=== PATIENT | female | born 1975 | race Caucasian/White ===

== ENCOUNTER 2017-05-12 21:24 | Emergency (ER) | payer OTHER ==
[~2017-05-12] VITALS: Ht 167.6 cm; Wt 119.8 kg
[2017-05-12 21:31] VITALS: BP 172/100
== END 2017-05-12 23:44 | disposition left against medical advice (07) ==
LOC: ED 23:17
DX: Z53.21 Procedure and treatment not carried out due to patient leaving prior to being seen by health care provider (principal)

== ENCOUNTER 2020-01-31 07:32 | Inpatient (IN) | payer MEDICAID, OTHER ==
[~2020-01-31] VITALS: Ht 167.6 cm; Wt 97.0 kg
[~2020-01-31 07:32] MED LIST: BLOOD PRESSURE MED PO
[2020-01-31] MEDS ORDERED: OXYC5TAB2 PO (07:56)
[2020-01-31] MEDS ORDERED: DICL-249 PEG (07:56)
[2020-01-31] MEDS ORDERED: PREG200C PO (07:56)
[2020-01-31] MEDS ORDERED: BUPR1FIL TD (07:56)
[2020-01-31] MEDS ORDERED: TIZA4CAP PO (07:56)
[2020-01-31] MEDS ORDERED: METH250T3 PO (07:56)
[2020-01-31] MEDS ORDERED: [UNRECOGNIZED DRUG - CODE] PO (07:56)
[2020-01-31] MEDS ORDERED: FENTANYL PF 100 MCG/2ML ONE (07:58)
[2020-01-31] MEDS ORDERED: FENTANYL PF 100 MCG/2ML IVPush ONE (08:00)
[2020-01-31] MEDS ORDERED: SODIUM CHLORIDE 0.9% 1,000ML IVBOLUS ONE (08:00)
--- NOTE | 2020-01-31 08:15 | NUR ---
PT BIB EMS FROM [facility]. PT HAS NECROTIC RIGHT TOE, HALF DOLLAR SIZE. PT HAS CHRONIC POOR VSACULAR INSUFFICIENCY. LOWER BILAT LEGS DUSKY IN COLOR. PEDAL PULSES ABSENT W DOPPLAR BY . DENIES CP, SOB OR COUGH
--- NOTE | 2020-01-31 09:44 | NUR ---
REPORT TO [facility]
[2020-01-31 11:24] VITALS: BP 116/73
[2020-01-31] MEDS: BUPRENORPHINE/NALOXONE 2-0.5MG SL SCH (11:33)
[2020-01-31] MEDS: TIZANIDINE 4MG TABLET PO SCH ×2 (11:33→22:03)
[2020-01-31] MEDS: PREGABALIN 200 MG CAPSULE PO SCH ×3 (11:33→22:04)
[2020-01-31 11:39] VITALS: BP 116/73
[2020-01-31] MEDS: ENOXAPARIN 40 MG/0.4 ML SQ SCH ×2 (12:00→14:26)
[2020-01-31] MEDS ORDERED: ONDANSETRON 2MG/ML, 2ML IVPush PRN (12:00)
[2020-01-31] MEDS ORDERED: TRAZODONE 50MG TABLET PO PRN (12:00)
[2020-01-31] MEDS ORDERED: MELATONIN 5 MG TABLET PO PRN (12:00)
[2020-01-31] MEDS ORDERED: ONDANSETRON ODT 4 MG PO PRN (12:00)
[2020-01-31 13:12] VITALS: BP 93/57
[2020-01-31] MEDS: POLYETHYLENE GLYCOL 17 GM PACKET PO SCH (14:25)
[2020-01-31] MEDS: SENNA/DOCUSATE TABLET PO SCH (14:26)
[2020-01-31] MEDS: DAPTOMYCIN 600 MG in SODIUM CHLORIDE 0.9% 100 ML IV SCH (16:03)
[2020-01-31 19:41] VITALS: BP 109/72
[2020-01-31] MEDS: METHYLDOPA 250 MG TABLET PO SCH ×2 (22:04→22:05)
[2020-01-31] MEDS: OXYcodone IR 5MG TABLET PO SCH (22:04)
[2020-02-01 00:45] VITALS: BP 115/70
[2020-02-01] MEDS: ACETAMINOPHEN 325 MG TABLET PO PRN (02:03)
[2020-02-01 05:41] LABS: ALANINE AMINOTRANSFERASE 48 U/L (12-78); ALBUMIN 2.4 g/dL (3.4-5.0); ANION GAP 7 mmol/L (5-15); CALCIUM 8.4 mg/dL (8.5-10.1); CHLORIDE 118 mmol/L (98-107)
[2020-02-01 05:44] LABS: ALKALINE PHOSPHATASE 164 U/L (45-117); BILIRUBIN,TOTAL 0.4 mg/dL (0.2-1.0); CHOL/HDL RATIO 5.5; CHOLESTEROL, TOTAL 132 mg/dL (140-239); CREATININE 0.64 mg/dL (0.55-1.02); HDL CHOL % 18 % (28-40); HDL CHOLESTEROL (DIRECT) 24 mg/dL (40-60); LDL CHOLESTEROL,CALCULATED 70 mg/dL (54-169); LDL/HDL RATIO 2.9 (0.5-3.0); TOTAL PROTEIN 6.1 g/dL (6.4-8.2); TRIGLYCERIDES 191 mg/dL (50-200); VLDL CHOLESTEROL 38 mg/dL (0-25)
[2020-02-01 06:33] LABS: MEAN CORPUSCULAR HEMOGLOBIN 28.4 pg (27.0-34.8); MEAN CORPUSCULAR HGB CONC 32.6 g/dL (32.4-35.8); MEAN PLATELET VOLUME 10.7 fL (7.4-10.4); PLATELET COUNT 84 x10^3/uL (130-400); RED BLOOD COUNT 4.91 x10^6/uL (3.82-5.3); RED CELL DISTRIBUTION WIDTH 14.2 % (9.6-15.2)
[2020-02-01 06:35] LABS: MD SCAN
[2020-02-01 06:36] LABS: BASOPHILS # (AUTO) 0.06 x10^3/uL (0-0.1); BASOPHILS % (AUTO) 0 % (0-1); EOSINOPHILS # (AUTO) 0.25 x10^3/uL (0-0.4); EOSINOPHILS % (AUTO) 2 % (1-7); LYMPHOCYTES # (AUTO) 2.81 x10^3/uL (1-3.4); LYMPHOCYTES % (AUTO) 17 % (22-44); MONOCYTES # (AUTO) 1.14 x10^3/uL (0.2-0.8); MONOCYTES % (AUTO) 7 % (2-9); NEUTROPHILS # (AUTO) 12.84 x10^3/uL (1.8-6.8); NEUTROPHILS % (AUTO) 75 % (42-75)
[2020-02-01] MEDS: POLYETHYLENE GLYCOL 17 GM PACKET PO SCH (07:16)
[2020-02-01] MEDS: NICOTINE 21 MG/24 HR PATCH.TD24 TD SCH (07:39)
[2020-02-01] MEDS: SENNA/DOCUSATE TABLET PO SCH (07:40)
[2020-02-01] MEDS: BUPRENORPHINE/NALOXONE 2-0.5MG SL SCH (07:40)
[2020-02-01] MEDS: METHYLDOPA 250 MG TABLET PO SCH ×3 (07:40→21:00)
[2020-02-01] MEDS: OXYcodone IR 5MG TABLET PO SCH (07:40)
[2020-02-01] MEDS: TIZANIDINE 4MG TABLET PO SCH ×2 (07:40→20:34)
[2020-02-01] MEDS: PREGABALIN 200 MG CAPSULE PO SCH ×3 (07:40→20:34)
[2020-02-01 08:48] VITALS: BP 119/74
[2020-02-01] MEDS: POTASSIUM CHLORIDE 20 MEQ in LACTATED RINGERS 1,000 ML IV SCH (08:54)
[2020-02-01] MEDS: ENOXAPARIN 40 MG/0.4 ML SQ SCH (11:23)
[2020-02-01 13:17] VITALS: BP 102/69
[2020-02-01] MEDS: DAPTOMYCIN 600 MG in SODIUM CHLORIDE 0.9% 100 ML IV SCH (16:15)
[2020-02-01 19:43] VITALS: BP 129/81
[2020-02-01] MEDS: OXYcodone IR 5MG TABLET PO PRN (20:36)
[2020-02-02 01:23] VITALS: BP 132/78
[2020-02-02] MEDS: OXYcodone IR 5MG TABLET PO PRN ×3 (03:30→23:06)
[2020-02-02] MEDS: POTASSIUM CHLORIDE 20 MEQ in LACTATED RINGERS 1,000 ML IV SCH ×2 (03:31→15:26)
[2020-02-02 05:42] LABS: CALCIUM 8.6 mg/dL (8.5-10.1); CHLORIDE 119 mmol/L (98-107)
[2020-02-02 05:46] LABS: ANION GAP 7 mmol/L (5-15); CREATININE 0.67 mg/dL (0.55-1.02)
[2020-02-02 06:13] LABS: MEAN CORPUSCULAR HEMOGLOBIN 28.4 pg (27.0-34.8); MEAN CORPUSCULAR HGB CONC 32.8 g/dL (32.4-35.8); PLATELET COUNT 95 x10^3/uL (130-400); RED BLOOD COUNT 4.87 x10^6/uL (3.82-5.3); RED CELL DISTRIBUTION WIDTH 13.9 % (9.6-15.2)
[2020-02-02 06:15] LABS: BASOPHILS # (AUTO) 0.06 x10^3/uL (0-0.1); BASOPHILS % (AUTO) 1 % (0-1); EOSINOPHILS # (AUTO) 0.17 x10^3/uL (0-0.4); EOSINOPHILS % (AUTO) 1 % (1-7); LYMPHOCYTES # (AUTO) 2.23 x10^3/uL (1-3.4); LYMPHOCYTES % (AUTO) 17 % (22-44); MD SCAN; MONOCYTES # (AUTO) 1.07 x10^3/uL (0.2-0.8); MONOCYTES % (AUTO) 8 % (2-9); NEUTROPHILS # (AUTO) 9.57 x10^3/uL (1.8-6.8); NEUTROPHILS % (AUTO) 73 % (42-75)
[2020-02-02 07:00] VITALS: BP 128/70
[2020-02-02] MEDS: TIZANIDINE 4MG TABLET PO SCH ×2 (09:00→21:01)
[2020-02-02] MEDS: POLYETHYLENE GLYCOL 17 GM PACKET PO SCH (09:00)
[2020-02-02] MEDS: SENNA/DOCUSATE TABLET PO SCH (09:00)
[2020-02-02] MEDS: METHYLDOPA 250 MG TABLET PO SCH ×2 (09:05→20:44)
[2020-02-02] MEDS: PREGABALIN 200 MG CAPSULE PO SCH ×3 (09:05→21:01)
[2020-02-02] MEDS: BUPRENORPHINE/NALOXONE 2-0.5MG SL SCH (09:05)
[2020-02-02] MEDS: NICOTINE 21 MG/24 HR PATCH.TD24 TD SCH (09:07)
[2020-02-02] MEDS: ENOXAPARIN 40 MG/0.4 ML SQ SCH (12:00)
[2020-02-02] MEDS ORDERED: NALOXONE 1 MG/ML, 2ML ONE (12:35)
[2020-02-02] MEDS ORDERED: FLUMAZENIL 0.1 MG/1 ML, 5ML ONE (12:35)
[2020-02-02] MEDS ORDERED: MIDAZOLAM 1 MG/ML, 5ML ONE (12:35)
[2020-02-02] MEDS ORDERED: LIDOCAINE 1%, 10ML ONE (12:35)
[2020-02-02] MEDS ORDERED: FENTANYL PF 100 MCG/2ML ONE (12:35)
[2020-02-02] MEDS ORDERED: PROTAMINE SULFATE 10 MG/ML, 25ML ONE (12:36)
[2020-02-02] MEDS ORDERED: HEPARIN 1,000 UNITS/ML, 10ML ONE (12:36)
[2020-02-02 14:17] VITALS: BP 114/69
[2020-02-02] MEDS: DAPTOMYCIN 600 MG in SODIUM CHLORIDE 0.9% 100 ML IV SCH (15:26)
[2020-02-02 20:04] VITALS: BP 110/68
[2020-02-03 01:42] VITALS: BP 101/62
[2020-02-03] MEDS: OXYcodone IR 5MG TABLET PO PRN ×3 (05:27→22:16)
[2020-02-03 06:22] LABS: CHLORIDE 116 mmol/L (98-107)
[2020-02-03 06:40] LABS: ALANINE AMINOTRANSFERASE 38 U/L (12-78); ALBUMIN 2.1 g/dL (3.4-5.0); ALKALINE PHOSPHATASE 151 U/L (45-117); ANION GAP 7 mmol/L (5-15); BILIRUBIN,TOTAL 0.2 mg/dL (0.2-1.0); CALCIUM 8.7 mg/dL (8.5-10.1); CREATINE KINASE, TOTAL 117 U/L (26-192); CREATININE 0.61 mg/dL (0.55-1.02); TOTAL PROTEIN 5.9 g/dL (6.4-8.2)
[2020-02-03 06:42] LABS: BASOPHILS # (AUTO) 0.05 x10^3/uL (0-0.1); BASOPHILS % (AUTO) 0 % (0-1); EOSINOPHILS # (AUTO) 0.15 x10^3/uL (0-0.4); EOSINOPHILS % (AUTO) 1 % (1-7); LYMPHOCYTES # (AUTO) 2.18 x10^3/uL (1-3.4); LYMPHOCYTES % (AUTO) 16 % (22-44); MD SCAN; MEAN CORPUSCULAR HEMOGLOBIN 28.8 pg (27.0-34.8); MEAN CORPUSCULAR HGB CONC 33.2 g/dL (32.4-35.8); MEAN PLATELET VOLUME 10.6 fL (7.4-10.4); MONOCYTES # (AUTO) 1.06 x10^3/uL (0.2-0.8); MONOCYTES % (AUTO) 8 % (2-9); NEUTROPHILS # (AUTO) 9.84 x10^3/uL (1.8-6.8); NEUTROPHILS % (AUTO) 74 % (42-75); PLATELET COUNT 82 x10^3/uL (130-400); RED BLOOD COUNT 4.22 x10^6/uL (3.82-5.3); RED CELL DISTRIBUTION WIDTH 14.2 % (9.6-15.2)
[2020-02-03 06:45] LABS: HCT (SEDRATE) 36.6 % (34.6-47.8)
[2020-02-03 07:13] VITALS: BP 131/78
[2020-02-03] MEDS: POLYETHYLENE GLYCOL 17 GM PACKET PO SCH (09:00)
[2020-02-03] MEDS: SENNA/DOCUSATE TABLET PO SCH (09:00)
[2020-02-03] MEDS: TIZANIDINE 4MG TABLET PO SCH ×2 (09:39→22:11)
[2020-02-03] MEDS: METHYLDOPA 250 MG TABLET PO SCH ×2 (09:39→21:00)
[2020-02-03] MEDS: PREGABALIN 200 MG CAPSULE PO SCH ×3 (09:39→22:11)
[2020-02-03] MEDS: NICOTINE 21 MG/24 HR PATCH.TD24 TD SCH (09:40)
[2020-02-03] MEDS: BUPRENORPHINE/NALOXONE 2-0.5MG SL SCH (10:03)
[2020-02-03 13:10] VITALS: BP 120/72
[2020-02-03] MEDS: ENOXAPARIN 40 MG/0.4 ML SQ SCH (14:05)
[2020-02-03] MEDS: DAPTOMYCIN 600 MG in SODIUM CHLORIDE 0.9% 100 ML IV SCH (17:33)
[2020-02-03 18:52] VITALS: BP 122/77
[2020-02-04 00:17] VITALS: BP 119/73
[2020-02-04 05:57] LABS: CHLORIDE 115 mmol/L (98-107)
[2020-02-04 06:25] LABS: ALANINE AMINOTRANSFERASE 40 U/L (12-78); ALBUMIN 2.1 g/dL (3.4-5.0); ALKALINE PHOSPHATASE 128 U/L (45-117); ANION GAP 9 mmol/L (5-15); BILIRUBIN,TOTAL 0.2 mg/dL (0.2-1.0); CALCIUM 8.8 mg/dL (8.5-10.1); CREATININE 0.77 mg/dL (0.55-1.02); TOTAL PROTEIN 5.9 g/dL (6.4-8.2)
[2020-02-04 06:32] LABS: BASOPHILS # (AUTO) 0.06 x10^3/uL (0-0.1); BASOPHILS % (AUTO) 1 % (0-1); EOSINOPHILS # (AUTO) 0.21 x10^3/uL (0-0.4); EOSINOPHILS % (AUTO) 2 % (1-7); LYMPHOCYTES # (AUTO) 2.18 x10^3/uL (1-3.4); LYMPHOCYTES % (AUTO) 20 % (22-44); MD SCAN; MEAN CORPUSCULAR HEMOGLOBIN 28.6 pg (27.0-34.8); MEAN CORPUSCULAR HGB CONC 32.7 g/dL (32.4-35.8); MEAN PLATELET VOLUME 10.5 fL (7.4-10.4); MONOCYTES # (AUTO) 0.95 x10^3/uL (0.2-0.8); MONOCYTES % (AUTO) 9 % (2-9); NEUTROPHILS % (AUTO) 69 % (42-75); PLATELET COUNT 89 x10^3/uL (130-400); RED BLOOD COUNT 4.15 x10^6/uL (3.82-5.3); RED CELL DISTRIBUTION WIDTH 14.1 % (9.6-15.2)
[2020-02-04 08:55] VITALS: BP 130/76
[2020-02-04] MEDS: NICOTINE 21 MG/24 HR PATCH.TD24 TD SCH (08:55)
[2020-02-04] MEDS: BUPRENORPHINE/NALOXONE 2-0.5MG SL SCH (08:55)
[2020-02-04] MEDS: METHYLDOPA 250 MG TABLET PO SCH ×2 (08:55→21:00)
[2020-02-04] MEDS: PREGABALIN 200 MG CAPSULE PO SCH ×3 (08:55→21:08)
[2020-02-04] MEDS: TIZANIDINE 4MG TABLET PO SCH ×2 (08:55→21:08)
[2020-02-04] MEDS: SENNA/DOCUSATE TABLET PO SCH (08:56)
[2020-02-04] MEDS: POLYETHYLENE GLYCOL 17 GM PACKET PO SCH (08:56)
[2020-02-04] MEDS: OXYcodone IR 5MG TABLET PO PRN ×3 (09:10→21:08)
[2020-02-04 12:33] VITALS: BP 119/62
[2020-02-04] MEDS: ENOXAPARIN 40 MG/0.4 ML SQ SCH (14:36)
[2020-02-04] MEDS: DAPTOMYCIN 600 MG in SODIUM CHLORIDE 0.9% 100 ML IV SCH (18:47)
[2020-02-04 20:25] VITALS: BP 134/78
[2020-02-05 04:30] VITALS: BP 106/70
[2020-02-05] MEDS: OXYcodone IR 5MG TABLET PO PRN ×3 (05:07→20:43)
[2020-02-05 07:09] VITALS: BP 128/64
[2020-02-05] MEDS: D5%-0.45NACL+KCL 20MEQ 1,000 ML IV SCH (09:19)
[2020-02-05] MEDS: POLYETHYLENE GLYCOL 17 GM PACKET PO SCH (09:19)
[2020-02-05] MEDS: PREGABALIN 200 MG CAPSULE PO SCH ×3 (09:19→20:00)
[2020-02-05] MEDS: TIZANIDINE 4MG TABLET PO SCH ×2 (09:19→19:59)
[2020-02-05] MEDS: SENNA/DOCUSATE TABLET PO SCH (09:19)
[2020-02-05] MEDS: METHYLDOPA 250 MG TABLET PO SCH ×2 (09:19→20:00)
[2020-02-05] MEDS: NICOTINE 21 MG/24 HR PATCH.TD24 TD SCH (09:20)
[2020-02-05] MEDS: BUPRENORPHINE/NALOXONE 2-0.5MG SL SCH (09:20)
[2020-02-05 09:49] VITALS: BP 134/76
[2020-02-05 12:49] VITALS: BP 134/76
[2020-02-05] MEDS ORDERED: CHLORHEXIDINE 15 ML UDC ONE (13:05)
[2020-02-05] MEDS ORDERED: CHLORHEXIDINE 15 ML UDC MM ONE (13:30)
[2020-02-05] MEDS ORDERED: PROPOFOL 50 ML ONE (13:36)
[2020-02-05] MEDS ORDERED: MIDAZOLAM 1 MG/ML, 2ML ONE (13:36)
[2020-02-05] MEDS ORDERED: FENTANYL PF 250 MCG/5ML ONE (13:37)
[2020-02-05] MEDS ORDERED: HEPARIN 1,000 UNITS/ML, 10ML ONE ×2 (13:46→15:24)
[2020-02-05] MEDS ORDERED: BUPIVACAINE/PF 0.5% ONE (13:46)
[2020-02-05] MEDS ORDERED: THROMBIN 5,000 UNIT VIAL TP ONE (13:46)
[2020-02-05] MEDS ORDERED: PROTAMINE SULFATE 10 MG/ML, 5ML ONE (13:46)
[2020-02-05] MEDS ORDERED: BUPIVACAINE/EPI 0.5% 1:200K ONE (13:47)
[2020-02-05] MEDS ORDERED: BACITRACIN 50,000 UNIT ONE (13:47)
[2020-02-05] MEDS ORDERED: MEPERIDINE/PF 25MG/0.5ML IVPush PRN (14:00)
[2020-02-05] MEDS ORDERED: FENTANYL PF 100 MCG/2ML IV PRN (14:00)
[2020-02-05] MEDS ORDERED: PROMETHAZINE 25 MG/ML, 1ML IVPush PRN (14:00)
[2020-02-05] MEDS ORDERED: ONDANSETRON 2MG/ML, 2ML IVPush PRN (14:00)
[2020-02-05] MEDS ORDERED: LABETALOL 5MG/ML, 20ML IV PRN (14:00)
[2020-02-05] MEDS ORDERED: EPHEDRINE 50 MG/ML, 1ML IVPush PRN (14:00)
[2020-02-05] MEDS ORDERED: OXYcodone 5 MG/5 ML ORAL.SOL UDC PO PRN (14:00)
[2020-02-05] MEDS ORDERED: DIPHENHYDRAMINE 50 MG/ML, 1ML IVPush PRN (14:00)
[2020-02-05] MEDS ORDERED: HYDROmorphone 1 MG/ML, 1ML INJ IVPush PRN (14:00)
[2020-02-05] MEDS ORDERED: DIAZEPAM 5 MG/ML, 2ML IVPush PRN (14:00)
[2020-02-05] MEDS ORDERED: EPHEDRINE 50 MG/ML, 1ML IM PRN (14:00)
[2020-02-05] MEDS ORDERED: ROCURONIUM 10 MG/ML,10ML ONE (14:10)
[2020-02-05] MEDS: HEPARIN 25,000 UNITS/250ML PMX 250 ML IV PRN (14:30)
[2020-02-05] MEDS ORDERED: HYDROmorphone 2 MG/ML, 1ML ONE (14:42)
[2020-02-05] MEDS ORDERED: VISIPAQUE 270 MG/ML, 50ML BOTTLE ONE (15:20)
[2020-02-05] MEDS ORDERED: HEPARIN 5,000 UNITS/ML, 1ML IV ONE (15:30)
[2020-02-05] MEDS ORDERED: PROPOFOL 10 MG/ML, 20ML ONE (15:41)
[2020-02-05] MEDS ORDERED: ONDANSETRON 2MG/ML, 2ML ONE (15:42)
[2020-02-05] MEDS ORDERED: SUCCINYLCHOLINE 20 MG/ML, 10ML ONE (15:42)
[2020-02-05] MEDS ORDERED: FENTANYL PF 100 MCG/2ML ONE (16:10)
[2020-02-05] MEDS ORDERED: HYDROmorphone 1 MG/ML, 1ML INJ ONE (16:10)
[2020-02-05] MEDS ORDERED: OXYcodone 5 MG/5 ML ORAL.SOL UDC ONE (16:11)
[2020-02-05] MEDS ORDERED: MEPERIDINE/PF 25MG/ML,1ML ONE (16:17)
[2020-02-05 17:15] VITALS: BP 148/80
[2020-02-05 19:54] VITALS: BP 124/74
[2020-02-05] MEDS: DAPTOMYCIN 600 MG in SODIUM CHLORIDE 0.9% 100 ML IV SCH (19:59)
[2020-02-05] MEDS: HEPARIN 5,000 UNITS/ML, 1ML IV PRN (21:19)
[2020-02-05] MEDS: CEFAZOLIN PMX 1GM/50ML 50 ML IVPB SCH (21:30)
[2020-02-06 00:18] VITALS: BP 118/72
[2020-02-06] MEDS: OXYcodone IR 5MG TABLET PO PRN ×4 (02:02→18:53)
[2020-02-06 03:37] LABS: ANION GAP 5 mmol/L (5-15); CHLORIDE 114 mmol/L (98-107); CREATININE 0.76 mg/dL (0.55-1.02)
[2020-02-06 04:00] LABS: MD YES; MEAN CORPUSCULAR HEMOGLOBIN 29.1 pg (27.0-34.8); MEAN CORPUSCULAR HGB CONC 33.7 g/dL (32.4-35.8); MEAN PLATELET VOLUME 11.7 fL (7.4-10.4); PLATELET COUNT 147 x10^3/uL (130-400); RED BLOOD COUNT 4.08 x10^6/uL (3.82-5.3)
[2020-02-06 04:04] LABS: <PLATELET ESTIMATE> ADEQUATE; <RBC MORPHOLOGY> NORMAL; BAND#(MANUAL) 0.14 x10^3/uL; BANDS%(MANUAL) 1 % (0-7); BASOS#(MANUAL) 0.14 x10^3/uL (0-0.1); BASOS% (MANUAL) 1 % (0-1); EOS#(MANUAL) 0.55 x10^3/uL (0.0-0.4); EOS% (MANUAL) 4 % (1-7); LARGE PLATELETS 1+; LYMPH#(MANUAL) 0.69 x10^3/uL (1-3.4); LYMPHS% (MANUAL) 5 % (22-44); MONOS#(MANUAL) 0.14 x10^3/uL (0.3-2.7); MONOS% (MANUAL) 1 % (2-9); SEG#(MANUAL) 12.06 x10^3/uL (1.8-6.8); SEGS% (MANUAL) 88 % (42-75)
[2020-02-06] MEDS: HEPARIN 5,000 UNITS/ML, 1ML IV PRN ×3 (04:05→19:55)
[2020-02-06] MEDS: morphine SULFATE 10 MG/ML, 1ML IV PRN ×4 (04:15→07:34)
[2020-02-06] MEDS: D5%-0.45NACL+KCL 20MEQ 1,000 ML IV SCH ×2 (04:15→17:48)
[2020-02-06 04:18] VITALS: BP 144/78
[2020-02-06] MEDS: CEFAZOLIN PMX 1GM/50ML 50 ML IVPB SCH (05:09)
[2020-02-06 07:16] VITALS: BP 115/79
[2020-02-06] MEDS ORDERED: MAGNESIUM SULFATE PMX 2GM/50ML 50 ML IV ONE (08:00)
[2020-02-06] MEDS: METHYLDOPA 250 MG TABLET PO SCH ×2 (08:27→20:10)
[2020-02-06] MEDS: MULTIVITS,STRESS FORMULA 1 TABLET PO SCH (08:27)
[2020-02-06] MEDS: TIZANIDINE 4MG TABLET PO SCH ×2 (08:28→20:11)
[2020-02-06] MEDS: ZINC SULFATE 220 MG CAPSULE PO SCH (08:28)
[2020-02-06] MEDS: CHOLECALCIFEROL 5,000u TAB PO SCH (08:28)
[2020-02-06] MEDS: POLYETHYLENE GLYCOL 17 GM PACKET PO SCH (08:30)
[2020-02-06] MEDS: SENNA/DOCUSATE TABLET PO SCH (08:30)
[2020-02-06] MEDS: NICOTINE 21 MG/24 HR PATCH.TD24 TD SCH (08:31)
[2020-02-06] MEDS: PREGABALIN 200 MG CAPSULE PO SCH ×3 (08:44→20:11)
[2020-02-06] MEDS: ASCORBIC ACID 500 MG TABLET PO SCH ×2 (08:45→17:51)
[2020-02-06] MEDS: GABAPENTIN 300 MG CAPSULE PO SCH ×3 (10:20→20:10)
[2020-02-06] MEDS: BUPRENORPHINE/NALOXONE 2-0.5MG SL SCH (10:20)
[2020-02-06] MEDS: HEPARIN 25,000 UNITS/250ML PMX 250 ML IV PRN (13:23)
[2020-02-06 13:27] VITALS: BP 116/60
[2020-02-06] MEDS: INSULIN LISPRO 100 UNITS/ML, PEN SQ-INSULIN SCH ×2 (16:00→20:11)
[2020-02-06] MEDS: DAPTOMYCIN 600 MG in SODIUM CHLORIDE 0.9% 100 ML IV SCH (18:53)
[2020-02-06 19:36] VITALS: BP 119/63
[2020-02-07 02:00] VITALS: BP 111/66
[2020-02-07] MEDS: HEPARIN 5,000 UNITS/ML, 1ML IV PRN ×3 (03:04→18:46)
[2020-02-07] MEDS: D5%-0.45NACL+KCL 20MEQ 1,000 ML IV SCH ×2 (04:15→15:22)
[2020-02-07 05:42] LABS: ALBUMIN 1.8 g/dL (3.4-5.0); CHLORIDE 115 mmol/L (98-107)
[2020-02-07 05:43] LABS: BASOPHILS # (AUTO) 0.04 x10^3/uL (0-0.1); BASOPHILS % (AUTO) 0 % (0-1); EOSINOPHILS # (AUTO) 0.22 x10^3/uL (0-0.4); EOSINOPHILS % (AUTO) 2 % (1-7); LYMPHOCYTES # (AUTO) 1.76 x10^3/uL (1-3.4); LYMPHOCYTES % (AUTO) 13 % (22-44); MD NO; MEAN CORPUSCULAR HEMOGLOBIN 28.2 pg (27.0-34.8); MEAN CORPUSCULAR HGB CONC 32.2 g/dL (32.4-35.8); MEAN PLATELET VOLUME 11.4 fL (7.4-10.4); MONOCYTES # (AUTO) 0.72 x10^3/uL (0.2-0.8); MONOCYTES % (AUTO) 6 % (2-9); NEUTROPHILS # (AUTO) 10.38 x10^3/uL (1.8-6.8); NEUTROPHILS % (AUTO) 79 % (42-75); PLATELET COUNT 155 x10^3/uL (130-400); RED BLOOD COUNT 4.03 x10^6/uL (3.82-5.3); RED CELL DISTRIBUTION WIDTH 13.9 % (9.6-15.2)
[2020-02-07 05:46] LABS: ANION GAP 8 mmol/L (5-15); CREATININE 0.63 mg/dL (0.55-1.02)
[2020-02-07] MEDS: INSULIN LISPRO 100 UNITS/ML, PEN SQ-INSULIN SCH ×4 (07:00→20:41)
[2020-02-07 07:15] VITALS: BP 119/76
[2020-02-07] MEDS: OXYcodone IR 5MG TABLET PO PRN ×4 (07:37→22:28)
[2020-02-07] MEDS: ASCORBIC ACID 500 MG TABLET PO SCH ×2 (07:37→16:01)
[2020-02-07] MEDS: CHOLECALCIFEROL 5,000u TAB PO SCH (08:55)
[2020-02-07] MEDS: morphine SULFATE 10 MG/ML, 1ML IV PRN (08:55)
[2020-02-07] MEDS: PREGABALIN 200 MG CAPSULE PO SCH ×3 (08:55→20:40)
[2020-02-07] MEDS: TIZANIDINE 4MG TABLET PO SCH ×2 (08:55→20:40)
[2020-02-07] MEDS: METHYLDOPA 250 MG TABLET PO SCH ×3 (08:55→20:43)
[2020-02-07] MEDS: MULTIVITS,STRESS FORMULA 1 TABLET PO SCH (08:55)
[2020-02-07] MEDS: ZINC SULFATE 220 MG CAPSULE PO SCH (08:56)
[2020-02-07] MEDS: GABAPENTIN 300 MG CAPSULE PO SCH ×3 (08:56→20:40)
[2020-02-07] MEDS: POLYETHYLENE GLYCOL 17 GM PACKET PO SCH (08:57)
[2020-02-07] MEDS: SENNA/DOCUSATE TABLET PO SCH (08:58)
[2020-02-07] MEDS: NICOTINE 21 MG/24 HR PATCH.TD24 TD SCH (08:59)
[2020-02-07] MEDS: HEPARIN 25,000 UNITS/250ML PMX 250 ML IV PRN (11:51)
[2020-02-07] MEDS: BUPRENORPHINE/NALOXONE 2-0.5MG SL SCH (11:55)
[2020-02-07 13:14] VITALS: BP 129/79
[2020-02-07] MEDS ORDERED: MAGNESIUM SULFATE PMX 2GM/50ML 50 ML IV ONE (15:30)
[2020-02-07] MEDS: metFORMIN XR 500 MG TAB.ER.24H PO SCH (16:01)
[2020-02-07] MEDS: DAPTOMYCIN 600 MG in SODIUM CHLORIDE 0.9% 100 ML IV SCH (18:18)
[2020-02-07 19:54] VITALS: BP 101/64
[2020-02-07] MEDS: INSULIN GLARGINE 100 UNITS/ML, PEN SQ-INSULIN SCH (20:41)
[2020-02-08 00:59] VITALS: BP 113/69
[2020-02-08] MEDS: D5%-0.45NACL+KCL 20MEQ 1,000 ML IV SCH ×2 (03:13→22:00)
[2020-02-08 05:07] LABS: BASOPHILS # (AUTO) 0.04 x10^3/uL (0-0.1); BASOPHILS % (AUTO) 0 % (0-1); EOSINOPHILS # (AUTO) 0.27 x10^3/uL (0-0.4); EOSINOPHILS % (AUTO) 2 % (1-7); LYMPHOCYTES # (AUTO) 1.77 x10^3/uL (1-3.4); LYMPHOCYTES % (AUTO) 16 % (22-44); MD NO; MEAN CORPUSCULAR HEMOGLOBIN 28.6 pg (27.0-34.8); MEAN CORPUSCULAR HGB CONC 32.8 g/dL (32.4-35.8); MEAN PLATELET VOLUME 11.3 fL (7.4-10.4); MONOCYTES # (AUTO) 0.63 x10^3/uL (0.2-0.8); MONOCYTES % (AUTO) 6 % (2-9); NEUTROPHILS % (AUTO) 76 % (42-75); PLATELET COUNT 176 x10^3/uL (130-400); RED CELL DISTRIBUTION WIDTH 14.2 % (9.6-15.2)
[2020-02-08 05:24] LABS: CHLORIDE 113 mmol/L (98-107)
[2020-02-08 05:40] LABS: ANION GAP 9 mmol/L (5-15); CALCIUM 9.1 mg/dL (8.5-10.1); CREATININE 0.64 mg/dL (0.55-1.02)
[2020-02-08 06:57] VITALS: BP 129/77
[2020-02-08] MEDS: INSULIN LISPRO 100 UNITS/ML, PEN SQ-INSULIN SCH ×4 (07:00→21:00)
[2020-02-08] MEDS: metFORMIN XR 500 MG TAB.ER.24H PO SCH (08:52)
[2020-02-08] MEDS: BUPRENORPHINE/NALOXONE 2-0.5MG SL SCH ×2 (08:52→08:53)
[2020-02-08] MEDS: PREGABALIN 200 MG CAPSULE PO SCH ×3 (08:52→21:06)
[2020-02-08] MEDS: TIZANIDINE 4MG TABLET PO SCH ×2 (08:52→21:05)
[2020-02-08] MEDS: METHYLDOPA 250 MG TABLET PO SCH ×2 (08:52→21:06)
[2020-02-08] MEDS: OXYcodone IR 5MG TABLET PO PRN ×3 (08:53→22:05)
[2020-02-08] MEDS: GABAPENTIN 300 MG CAPSULE PO SCH ×3 (08:53→21:06)
[2020-02-08] MEDS: MULTIVITS,STRESS FORMULA 1 TABLET PO SCH (08:54)
[2020-02-08] MEDS: ASCORBIC ACID 500 MG TABLET PO SCH ×2 (08:54→17:41)
[2020-02-08] MEDS: ZINC SULFATE 220 MG CAPSULE PO SCH (08:54)
[2020-02-08] MEDS: CHOLECALCIFEROL 5,000u TAB PO SCH (08:54)
[2020-02-08] MEDS: SENNA/DOCUSATE TABLET PO SCH (09:00)
[2020-02-08] MEDS: POLYETHYLENE GLYCOL 17 GM PACKET PO SCH (09:00)
[2020-02-08] MEDS: NICOTINE 21 MG/24 HR PATCH.TD24 TD SCH (09:00)
[2020-02-08] MEDS ORDERED: FENTANYL PF 100 MCG/2ML ONE ×2 (12:26→13:37)
[2020-02-08] MEDS ORDERED: MIDAZOLAM 1 MG/ML, 2ML ONE (12:26)
[2020-02-08] MEDS ORDERED: ONDANSETRON 2MG/ML, 2ML ONE (12:57)
[2020-02-08] MEDS ORDERED: LIDOCAINE-MPF 2% ,5ML ONE (12:57)
[2020-02-08] MEDS ORDERED: DEXAMETHASONE 4 MG/ML, 1ML ONE (12:57)
[2020-02-08] MEDS ORDERED: PROPOFOL 10 MG/ML, 20ML ONE (12:57)
[2020-02-08] MEDS ORDERED: LABETALOL 5MG/ML, 20ML IV PRN (13:00)
[2020-02-08] MEDS ORDERED: ALBUTEROL SULFATE 2.5 MG/3 ML NPPB PRN (13:00)
[2020-02-08] MEDS ORDERED: LORazepam 2 MG/ML, 1ML IVPush PRN (13:00)
[2020-02-08] MEDS ORDERED: hydrALAzine 20 MG/ML, 1ML IV PRN (13:00)
[2020-02-08] MEDS ORDERED: ACETAMINOPHEN 325 MG TABLET PO PRN (13:00)
[2020-02-08] MEDS ORDERED: OXYcodone 5 MG/5 ML ORAL.SOL UDC PO PRN (13:00)
[2020-02-08] MEDS ORDERED: MEPERIDINE/PF 25MG/0.5ML IVPush PRN (13:00)
[2020-02-08] MEDS ORDERED: PROMETHAZINE 25 MG/ML, 1ML IVPush PRN (13:00)
[2020-02-08] MEDS ORDERED: OXYcodone 5 MG/5 ML ORAL.SOL UDC ONE (13:38)
[2020-02-08] MEDS ORDERED: HYDROmorphone 2 MG/ML, 1ML ONE (13:38)
[2020-02-08] MEDS: FENTANYL PF 100 MCG/2ML IV PRN ×2 (13:39→13:45)
[2020-02-08] MEDS: HYDROmorphone 1 MG/ML, 1ML INJ IVPush PRN ×4 (13:57→14:12)
[2020-02-08 15:00] VITALS: BP 117/77
[2020-02-08] MEDS ORDERED: HEPARIN 5,000 UNITS/ML, 1ML IV ONE (16:00)
[2020-02-08] MEDS: HEPARIN 25,000 UNITS/250ML PMX 250 ML IV PRN (17:34)
[2020-02-08] MEDS: DAPTOMYCIN 600 MG in SODIUM CHLORIDE 0.9% 100 ML IV SCH (18:05)
[2020-02-08 19:55] VITALS: BP 122/74
[2020-02-08] MEDS: INSULIN GLARGINE 100 UNITS/ML, PEN SQ-INSULIN SCH (21:00)
[2020-02-08] MEDS: ACETAMINOPHEN 325 MG TABLET PO PRN (21:06)
[2020-02-09] MEDS: HEPARIN 5,000 UNITS/ML, 1ML IV PRN ×3 (00:36→22:09)
[2020-02-09 00:37] VITALS: BP 135/66
[2020-02-09 03:53] VITALS: BP 89/53
[2020-02-09] MEDS: OXYcodone IR 5MG TABLET PO PRN ×4 (04:55→18:23)
[2020-02-09] MEDS: INSULIN LISPRO 100 UNITS/ML, PEN SQ-INSULIN SCH ×4 (07:00→21:00)
[2020-02-09 07:32] LABS: MEAN CORPUSCULAR HEMOGLOBIN 28.1 pg (27.0-34.8); MEAN PLATELET VOLUME 10.2 fL (7.4-10.4); PLATELET COUNT 201 x10^3/uL (130-400); RED BLOOD COUNT 3.29 x10^6/uL (3.82-5.3); RED CELL DISTRIBUTION WIDTH 13.8 % (9.6-15.2)
[2020-02-09 07:36] LABS: ANION GAP 9 mmol/L (5-15); CALCIUM 8.6 mg/dL (8.5-10.1); CHLORIDE 109 mmol/L (98-107)
[2020-02-09 07:37] LABS: CREATININE 0.91 mg/dL (0.55-1.02)
[2020-02-09 07:51] VITALS: BP 89/54
[2020-02-09] MEDS: D5%-0.45NACL+KCL 20MEQ 1,000 ML IV SCH (08:00)
[2020-02-09 08:12] LABS: BASOPHILS # (AUTO) 0.07 x10^3/uL (0-0.1); BASOPHILS % (AUTO) 0 % (0-1); EOSINOPHILS # (AUTO) 0.29 x10^3/uL (0-0.4); EOSINOPHILS % (AUTO) 2 % (1-7); LYMPHOCYTES # (AUTO) 2.24 x10^3/uL (1-3.4); LYMPHOCYTES % (AUTO) 13 % (22-44); MD SCAN; MONOCYTES # (AUTO) 0.91 x10^3/uL (0.2-0.8); MONOCYTES % (AUTO) 5 % (2-9); NEUTROPHILS # (AUTO) 13.44 x10^3/uL (1.8-6.8); NEUTROPHILS % (AUTO) 79 % (42-75)
[2020-02-09] MEDS: METHYLDOPA 250 MG TABLET PO SCH ×2 (09:00→21:00)
[2020-02-09] MEDS: metFORMIN XR 500 MG TAB.ER.24H PO SCH ×3 (09:00→21:22)
[2020-02-09] MEDS: NICOTINE 21 MG/24 HR PATCH.TD24 TD SCH (09:00)
[2020-02-09] MEDS: SENNA/DOCUSATE TABLET PO SCH (09:00)
[2020-02-09] MEDS: POLYETHYLENE GLYCOL 17 GM PACKET PO SCH (09:00)
[2020-02-09] MEDS: ZINC SULFATE 220 MG CAPSULE PO SCH (09:09)
[2020-02-09] MEDS: CHOLECALCIFEROL 5,000u TAB PO SCH (09:10)
[2020-02-09] MEDS: TIZANIDINE 4MG TABLET PO SCH ×2 (09:10→21:22)
[2020-02-09] MEDS: ASCORBIC ACID 500 MG TABLET PO SCH ×2 (09:10→16:39)
[2020-02-09] MEDS: PREGABALIN 200 MG CAPSULE PO SCH ×3 (09:10→21:21)
[2020-02-09] MEDS: MULTIVITS,STRESS FORMULA 1 TABLET PO SCH (09:10)
[2020-02-09] MEDS: GABAPENTIN 300 MG CAPSULE PO SCH ×3 (09:10→21:22)
[2020-02-09] MEDS: DAPTOMYCIN 600 MG in SODIUM CHLORIDE 0.9% 100 ML IV SCH (13:38)
[2020-02-09 14:00] VITALS: BP 104/64
[2020-02-09] MEDS: MEROPENEM 1 GM in SODIUM CHLORIDE 0.9% 100 ML IV SCH ×2 (14:38→22:37)
[2020-02-09] MEDS: HEPARIN 25,000 UNITS/250ML PMX 250 ML IV PRN (15:13)
[2020-02-09] MEDS ORDERED: FUROSEMIDE 20 MG/2 ML IV ONE (18:00)
[2020-02-09 19:45] VITALS: BP 100/62
[2020-02-09] MEDS ORDERED: INSULIN GLARGINE 100 UNITS/ML, PEN SQ-INSULIN SCH (21:00)
[2020-02-09 21:20] VITALS: BP 114/72
[2020-02-09] MEDS: INSULIN GLARGINE 100 UNITS/ML, PEN SQ-INSULIN SCH (22:09)
[2020-02-10 01:25] VITALS: BP 117/69
[2020-02-10] MEDS: OXYcodone IR 5MG TABLET PO PRN ×5 (01:45→22:32)
[2020-02-10 04:34] LABS: BASOPHILS # (AUTO) 0.02 x10^3/uL (0-0.1); BASOPHILS % (AUTO) 0 % (0-1); EOSINOPHILS # (AUTO) 0.27 x10^3/uL (0-0.4); EOSINOPHILS % (AUTO) 2 % (1-7); LYMPHOCYTES # (AUTO) 2.29 x10^3/uL (1-3.4); LYMPHOCYTES % (AUTO) 17 % (22-44); MD NO; MEAN CORPUSCULAR HEMOGLOBIN 28.3 pg (27.0-34.8); MEAN CORPUSCULAR HGB CONC 32.5 g/dL (32.4-35.8); MONOCYTES # (AUTO) 0.97 x10^3/uL (0.2-0.8); MONOCYTES % (AUTO) 7 % (2-9); NEUTROPHILS # (AUTO) 10.14 x10^3/uL (1.8-6.8); NEUTROPHILS % (AUTO) 74 % (42-75); PLATELET COUNT 241 x10^3/uL (130-400); RED BLOOD COUNT 3.62 x10^6/uL (3.82-5.3)
[2020-02-10 04:38] LABS: HCT (SEDRATE) 31.5 % (34.6-47.8)
[2020-02-10 04:42] LABS: ALANINE AMINOTRANSFERASE 26 U/L (12-78); ALBUMIN 1.9 g/dL (3.4-5.0); ANION GAP 6 mmol/L (5-15); CALCIUM 9.3 mg/dL (8.5-10.1); CHLORIDE 111 mmol/L (98-107)
[2020-02-10 04:50] LABS: ALKALINE PHOSPHATASE 115 U/L (45-117); BILIRUBIN,TOTAL 0.2 mg/dL (0.2-1.0); CREATINE KINASE, TOTAL 140 U/L (26-192); CREATININE 0.72 mg/dL (0.55-1.02); TOTAL PROTEIN 6.5 g/dL (6.4-8.2)
[2020-02-10 04:53] LABS: C-REACTIVE PROTEIN, QUANT > 19.00 mg/dL (0.02-0.49)
[2020-02-10] MEDS: HEPARIN 5,000 UNITS/ML, 1ML IV PRN ×3 (05:09→17:57)
[2020-02-10] MEDS: MEROPENEM 1 GM in SODIUM CHLORIDE 0.9% 100 ML IV SCH (06:25)
[2020-02-10 07:00] VITALS: BP 105/65
[2020-02-10] MEDS: INSULIN LISPRO 100 UNITS/ML, PEN SQ-INSULIN SCH ×4 (07:00→22:44)
[2020-02-10] MEDS: INSULIN GLARGINE 100 UNITS/ML, PEN SQ-INSULIN SCH ×2 (07:48→22:43)
[2020-02-10] MEDS: NICOTINE 21 MG/24 HR PATCH.TD24 TD SCH (07:49)
[2020-02-10] MEDS: PREGABALIN 200 MG CAPSULE PO SCH ×3 (07:49→22:49)
[2020-02-10] MEDS: MULTIVITS,STRESS FORMULA 1 TABLET PO SCH (07:49)
[2020-02-10] MEDS: METHYLDOPA 250 MG TABLET PO SCH (07:49)
[2020-02-10] MEDS: metFORMIN XR 500 MG TAB.ER.24H PO SCH ×2 (07:49→22:32)
[2020-02-10] MEDS: TIZANIDINE 4MG TABLET PO SCH ×2 (07:50→22:32)
[2020-02-10] MEDS: ASCORBIC ACID 500 MG TABLET PO SCH ×2 (07:50→17:14)
[2020-02-10] MEDS: ZINC SULFATE 220 MG CAPSULE PO SCH (07:50)
[2020-02-10] MEDS: GABAPENTIN 300 MG CAPSULE PO SCH ×3 (07:51→22:31)
[2020-02-10] MEDS: POLYETHYLENE GLYCOL 17 GM PACKET PO SCH (07:51)
[2020-02-10] MEDS: CHOLECALCIFEROL 5,000u TAB PO SCH (07:51)
[2020-02-10] MEDS: SENNA/DOCUSATE TABLET PO SCH (07:51)
[2020-02-10] MEDS: ERTAPENEM 1 GM in SODIUM CHLORIDE 0.9% 50 ML IV SCH (09:56)
[2020-02-10] MEDS: FUROSEMIDE 20 MG/2 ML IV SCH ×2 (09:56→22:32)
[2020-02-10] MEDS: HEPARIN 25,000 UNITS/250ML PMX 250 ML IV PRN (10:01)
[2020-02-10 13:52] VITALS: BP 120/77
[2020-02-10 16:16] VITALS: BP 122/68
[2020-02-10 19:04] VITALS: BP 119/71
[2020-02-11] MEDS: HEPARIN 5,000 UNITS/ML, 1ML IV PRN ×3 (01:12→22:46)
[2020-02-11 01:30] VITALS: BP 162/82
[2020-02-11] MEDS: HEPARIN 25,000 UNITS/250ML PMX 250 ML IV PRN ×2 (01:32→16:41)
[2020-02-11 02:25] LABS: BASOPHILS # (AUTO) 0.02 x10^3/uL (0-0.1); BASOPHILS % (AUTO) 0 % (0-1); EOSINOPHILS # (AUTO) 0.29 x10^3/uL (0-0.4); EOSINOPHILS % (AUTO) 2 % (1-7); LYMPHOCYTES # (AUTO) 1.58 x10^3/uL (1-3.4); LYMPHOCYTES % (AUTO) 12 % (22-44); MD NO; MEAN CORPUSCULAR HEMOGLOBIN 28.6 pg (27.0-34.8); MEAN PLATELET VOLUME 11.6 fL (7.4-10.4); MONOCYTES # (AUTO) 0.68 x10^3/uL (0.2-0.8); MONOCYTES % (AUTO) 5 % (2-9); NEUTROPHILS # (AUTO) 11.12 x10^3/uL (1.8-6.8); NEUTROPHILS % (AUTO) 81 % (42-75); PLATELET COUNT 268 x10^3/uL (130-400); RED BLOOD COUNT 3.85 x10^6/uL (3.82-5.3); RED CELL DISTRIBUTION WIDTH 13.7 % (9.6-15.2)
[2020-02-11 02:35] LABS: ANION GAP 8 mmol/L (5-15); CHLORIDE 106 mmol/L (98-107); CREATININE 0.84 mg/dL (0.55-1.02)
[2020-02-11] MEDS: OXYcodone IR 5MG TABLET PO PRN ×5 (03:38→20:56)
[2020-02-11 07:18] VITALS: BP 106/51
[2020-02-11] MEDS: PREGABALIN 200 MG CAPSULE PO SCH ×3 (08:02→20:57)
[2020-02-11] MEDS: metFORMIN XR 500 MG TAB.ER.24H PO SCH ×2 (08:02→20:56)
[2020-02-11] MEDS: MULTIVITS,STRESS FORMULA 1 TABLET PO SCH (08:02)
[2020-02-11] MEDS: ZINC SULFATE 220 MG CAPSULE PO SCH (08:02)
[2020-02-11] MEDS: GABAPENTIN 300 MG CAPSULE PO SCH ×3 (08:02→20:57)
[2020-02-11] MEDS: ASCORBIC ACID 500 MG TABLET PO SCH ×2 (08:03→16:19)
[2020-02-11] MEDS: POLYETHYLENE GLYCOL 17 GM PACKET PO SCH (08:03)
[2020-02-11] MEDS: SENNA/DOCUSATE TABLET PO SCH (08:03)
[2020-02-11] MEDS: INSULIN LISPRO 100 UNITS/ML, PEN SQ-INSULIN SCH ×4 (08:03→21:00)
[2020-02-11] MEDS: TIZANIDINE 4MG TABLET PO SCH ×2 (08:03→20:57)
[2020-02-11] MEDS: CHOLECALCIFEROL 5,000u TAB PO SCH (08:03)
[2020-02-11] MEDS: NICOTINE 21 MG/24 HR PATCH.TD24 TD SCH (08:04)
[2020-02-11] MEDS: INSULIN GLARGINE 100 UNITS/ML, PEN SQ-INSULIN SCH ×2 (08:14→21:01)
[2020-02-11] MEDS: ERTAPENEM 1 GM in SODIUM CHLORIDE 0.9% 50 ML IV SCH (09:58)
[2020-02-11 14:01] VITALS: BP 135/66
[2020-02-11] MEDS ORDERED: GADOTERATE 10 MMOL/20 ML SYR ONE (15:41)
[2020-02-11 21:10] VITALS: BP 99/65
[2020-02-12 00:55] VITALS: BP 105/62
[2020-02-12] MEDS: OXYcodone IR 5MG TABLET PO PRN ×6 (01:29→21:50)
[2020-02-12] MEDS: ACETAMINOPHEN 325 MG TABLET PO PRN ×2 (01:29→05:22)
[2020-02-12] MEDS: HEPARIN 25,000 UNITS/250ML PMX 250 ML IV PRN ×2 (05:22→15:52)
[2020-02-12 07:30] VITALS: BP 104/57
[2020-02-12] MEDS: INSULIN LISPRO 100 UNITS/ML, PEN SQ-INSULIN SCH ×4 (07:32→20:58)
[2020-02-12] MEDS: ASCORBIC ACID 500 MG TABLET PO SCH ×2 (08:36→17:23)
[2020-02-12] MEDS: MULTIVITS,STRESS FORMULA 1 TABLET PO SCH (08:36)
[2020-02-12] MEDS: GABAPENTIN 300 MG CAPSULE PO SCH ×3 (08:36→21:00)
[2020-02-12] MEDS: PREGABALIN 200 MG CAPSULE PO SCH ×3 (08:36→20:57)
[2020-02-12] MEDS: metFORMIN XR 500 MG TAB.ER.24H PO SCH ×2 (08:36→20:57)
[2020-02-12] MEDS: ZINC SULFATE 220 MG CAPSULE PO SCH (08:36)
[2020-02-12] MEDS: NICOTINE 21 MG/24 HR PATCH.TD24 TD SCH (08:37)
[2020-02-12] MEDS: TIZANIDINE 4MG TABLET PO SCH ×2 (08:37→20:57)
[2020-02-12] MEDS: CHOLECALCIFEROL 5,000u TAB PO SCH (08:37)
[2020-02-12] MEDS: INSULIN GLARGINE 100 UNITS/ML, PEN SQ-INSULIN SCH ×2 (08:37→20:58)
[2020-02-12] MEDS: POLYETHYLENE GLYCOL 17 GM PACKET PO SCH (08:41)
[2020-02-12] MEDS: SENNA/DOCUSATE TABLET PO SCH (08:41)
[2020-02-12] MEDS: ERTAPENEM 1 GM in SODIUM CHLORIDE 0.9% 50 ML IV SCH (09:32)
[2020-02-12 14:55] VITALS: BP 133/69
[2020-02-12 19:17] VITALS: BP 113/68
[2020-02-13 00:34] VITALS: BP 120/71
[2020-02-13] MEDS: INSULIN LISPRO 100 UNITS/ML, PEN SQ-INSULIN SCH ×4 (06:15→21:00)
[2020-02-13] MEDS: HEPARIN 25,000 UNITS/250ML PMX 250 ML IV PRN ×2 (06:33→20:20)
[2020-02-13] MEDS: OXYcodone IR 5MG TABLET PO PRN ×4 (06:34→20:15)
[2020-02-13 06:50] LABS: BASOPHILS # (AUTO) 0.01 x10^3/uL (0-0.1); BASOPHILS % (AUTO) 0 % (0-1); EOSINOPHILS # (AUTO) 0.27 x10^3/uL (0-0.4); EOSINOPHILS % (AUTO) 3 % (1-7); LYMPHOCYTES # (AUTO) 1.82 x10^3/uL (1-3.4); LYMPHOCYTES % (AUTO) 20 % (22-44); MD NO; MEAN CORPUSCULAR HGB CONC 32.2 g/dL (32.4-35.8); MEAN PLATELET VOLUME 9.7 fL (7.4-10.4); MONOCYTES # (AUTO) 0.61 x10^3/uL (0.2-0.8); MONOCYTES % (AUTO) 7 % (2-9); NEUTROPHILS # (AUTO) 6.43 x10^3/uL (1.8-6.8); NEUTROPHILS % (AUTO) 70 % (42-75); PLATELET COUNT 308 x10^3/uL (130-400)
[2020-02-13 06:51] VITALS: BP 115/61
[2020-02-13] MEDS: HEPARIN 5,000 UNITS/ML, 1ML IV PRN (07:10)
[2020-02-13] MEDS: PREGABALIN 200 MG CAPSULE PO SCH ×3 (08:17→22:10)
[2020-02-13] MEDS: TIZANIDINE 4MG TABLET PO SCH ×2 (08:17→22:10)
[2020-02-13] MEDS: metFORMIN XR 500 MG TAB.ER.24H PO SCH ×2 (08:17→22:10)
[2020-02-13] MEDS: MULTIVITS,STRESS FORMULA 1 TABLET PO SCH (08:17)
[2020-02-13] MEDS: ZINC SULFATE 220 MG CAPSULE PO SCH (08:17)
[2020-02-13] MEDS: ASCORBIC ACID 500 MG TABLET PO SCH ×2 (08:17→17:38)
[2020-02-13] MEDS: CHOLECALCIFEROL 5,000u TAB PO SCH (08:17)
[2020-02-13] MEDS: NICOTINE 21 MG/24 HR PATCH.TD24 TD SCH (08:18)
[2020-02-13] MEDS: INSULIN GLARGINE 100 UNITS/ML, PEN SQ-INSULIN SCH ×2 (08:18→22:11)
[2020-02-13] MEDS: SENNA/DOCUSATE TABLET PO SCH (08:23)
[2020-02-13] MEDS: ERTAPENEM 1 GM in SODIUM CHLORIDE 0.9% 50 ML IV SCH (08:23)
[2020-02-13] MEDS: POLYETHYLENE GLYCOL 17 GM PACKET PO SCH (08:23)
[2020-02-13] MEDS: GABAPENTIN 300 MG CAPSULE PO SCH ×2 (13:22→22:10)
[2020-02-13 14:10] VITALS: BP 132/78
[2020-02-13 18:58] VITALS: BP 137/85
[2020-02-14 01:43] VITALS: BP 106/57
[2020-02-14] MEDS: OXYcodone IR 5MG TABLET PO PRN ×4 (03:13→20:10)
[2020-02-14] MEDS: HEPARIN 25,000 UNITS/250ML PMX 250 ML IV PRN (06:28)
[2020-02-14] MEDS: INSULIN LISPRO 100 UNITS/ML, PEN SQ-INSULIN SCH ×4 (06:29→21:00)
[2020-02-14 06:57] VITALS: BP 129/62
[2020-02-14] MEDS: NICOTINE 21 MG/24 HR PATCH.TD24 TD SCH (08:25)
[2020-02-14] MEDS: INSULIN GLARGINE 100 UNITS/ML, PEN SQ-INSULIN SCH ×2 (08:25→22:22)
[2020-02-14] MEDS: PREGABALIN 200 MG CAPSULE PO SCH ×3 (08:26→21:59)
[2020-02-14] MEDS: ZINC SULFATE 220 MG CAPSULE PO SCH (08:26)
[2020-02-14] MEDS: ASCORBIC ACID 500 MG TABLET PO SCH ×2 (08:26→16:20)
[2020-02-14] MEDS: TIZANIDINE 4MG TABLET PO SCH ×2 (08:26→21:59)
[2020-02-14] MEDS: POLYETHYLENE GLYCOL 17 GM PACKET PO SCH (08:26)
[2020-02-14] MEDS: GABAPENTIN 300 MG CAPSULE PO SCH ×3 (08:26→21:59)
[2020-02-14] MEDS: CHOLECALCIFEROL 5,000u TAB PO SCH (08:26)
[2020-02-14] MEDS: MULTIVITS,STRESS FORMULA 1 TABLET PO SCH (08:26)
[2020-02-14] MEDS: SENNA/DOCUSATE TABLET PO SCH (08:27)
[2020-02-14] MEDS: metFORMIN XR 500 MG TAB.ER.24H PO SCH ×2 (08:27→21:59)
[2020-02-14] MEDS: ERTAPENEM 1 GM in SODIUM CHLORIDE 0.9% 50 ML IV SCH (09:22)
[2020-02-14] MEDS ORDERED: SIMV20TA19 PO (11:18)
[2020-02-14] MEDS ORDERED: INSU100I13 SQ-INSULIN (11:18)
[2020-02-14] MEDS ORDERED: METF500T3 PO (11:18)
[2020-02-14] MEDS ORDERED: GABA300C PO (11:18)
[2020-02-14] MEDS ORDERED: ACET325T26 PO (11:18)
[2020-02-14] MEDS ORDERED: CLOP75TA PO (11:18)
[2020-02-14] MEDS ORDERED: ZINC220C7 PO (11:18)
[2020-02-14] MEDS ORDERED: ERTA1VIA4 IV (11:18)
[2020-02-14] MEDS ORDERED: OXYC5TAB3 PO (11:18)
[2020-02-14] MEDS ORDERED: Senna/Docusate PO (11:18)
[2020-02-14] MEDS ORDERED: ASCO500T9 PO (11:18)
[2020-02-14] MEDS ORDERED: CHOL500045 PO (11:18)
[2020-02-14] MEDS ORDERED: NICO-487 TD (11:19)
[2020-02-14] MEDS: CLOPIDOGREL 75 MG TABLET PO SCH (11:28)
[2020-02-14 14:09] VITALS: BP 124/79
[2020-02-14 20:19] VITALS: BP 138/79
[2020-02-14] MEDS ORDERED: SIMVASTATIN 20 MG TABLET PO SCH (21:00)
[2020-02-15 01:31] VITALS: BP 147/79
[2020-02-15] MEDS: OXYcodone IR 5MG TABLET PO PRN ×3 (01:43→10:34)
[2020-02-15 06:38] VITALS: BP 137/73
[2020-02-15] MEDS: INSULIN LISPRO 100 UNITS/ML, PEN SQ-INSULIN SCH ×2 (07:00→10:55)
[2020-02-15] MEDS: GABAPENTIN 300 MG CAPSULE PO SCH (08:08)
[2020-02-15] MEDS: POLYETHYLENE GLYCOL 17 GM PACKET PO SCH (08:08)
[2020-02-15] MEDS: INSULIN GLARGINE 100 UNITS/ML, PEN SQ-INSULIN SCH (08:08)
[2020-02-15] MEDS: metFORMIN XR 500 MG TAB.ER.24H PO SCH (08:09)
[2020-02-15] MEDS: PREGABALIN 200 MG CAPSULE PO SCH (08:09)
[2020-02-15] MEDS: SENNA/DOCUSATE TABLET PO SCH (08:09)
[2020-02-15] MEDS: ASCORBIC ACID 500 MG TABLET PO SCH (08:09)
[2020-02-15] MEDS: CLOPIDOGREL 75 MG TABLET PO SCH (08:09)
[2020-02-15] MEDS: ZINC SULFATE 220 MG CAPSULE PO SCH (08:09)
[2020-02-15] MEDS: TIZANIDINE 4MG TABLET PO SCH (08:09)
[2020-02-15] MEDS: CHOLECALCIFEROL 5,000u TAB PO SCH (08:09)
[2020-02-15] MEDS: NICOTINE 21 MG/24 HR PATCH.TD24 TD SCH (08:09)
[2020-02-15] MEDS: MULTIVITS,STRESS FORMULA 1 TABLET PO SCH (08:12)
[2020-02-15] MEDS: ERTAPENEM 1 GM in SODIUM CHLORIDE 0.9% 50 ML IV SCH (09:05)
== END 2020-02-15 11:30 | DRG 853 ==
LOC: ED 08:06 → SUATTDRO 09:48 → 3N 10:32 → 4NE 02-05 05:57
PROVIDERS: ADMIT Emergency Medicine; ATTEND Hospitalist
PROC: B41D1ZZ Fluoroscopy of Aorta and Bilateral Lower Extremity Arteries using Low Osmolar Contrast (ICD-10-PCS; 2020-02-02)
PROC: B41F1ZZ Fluoroscopy of Right Lower Extremity Arteries using Low Osmolar Contrast (ICD-10-PCS; 2020-02-02)
PROC: B41G1ZZ Fluoroscopy of Left Lower Extremity Arteries using Low Osmolar Contrast (ICD-10-PCS; 2020-02-02)
PROC: 0Y6M0Z4 Detachment at Right Foot, Complete 1st Ray, Open Approach (ICD-10-PCS; 2020-02-05)
PROC: 0Y6M0Z5 Detachment at Right Foot, Complete 2nd Ray, Open Approach (ICD-10-PCS; 2020-02-05)
PROC: 0Y6M0Z6 Detachment at Right Foot, Complete 3rd Ray, Open Approach (ICD-10-PCS; 2020-02-05)
PROC: 0Y6M0Z7 Detachment at Right Foot, Complete 4th Ray, Open Approach (ICD-10-PCS; 2020-02-05)
PROC: 0Y6M0Z8 Detachment at Right Foot, Complete 5th Ray, Open Approach (ICD-10-PCS; 2020-02-05)
PROC: B41F1ZZ Fluoroscopy of Right Lower Extremity Arteries using Low Osmolar Contrast (ICD-10-PCS; 2020-02-05)
PROC: 047M3ZZ Dilation of Right Popliteal Artery, Percutaneous Approach (ICD-10-PCS; principal; 2020-02-05 13:30)
PROC: 04CM0ZZ Extirpation of Matter from Right Popliteal Artery, Open Approach (ICD-10-PCS; 2020-02-05 13:30)
PROC: 0Y6N0Z0 Detachment at Left Foot, Complete, Open Approach (ICD-10-PCS; 2020-02-07)
PROC: 02HV33Z Insertion of Infusion Device into Superior Vena Cava, Percutaneous Approach (ICD-10-PCS; 2020-02-09)
PROC: B5181ZA Fluoroscopy of Superior Vena Cava using Low Osmolar Contrast, Guidance (ICD-10-PCS; 2020-02-09)
PROC: B548ZZA Ultrasonography of Superior Vena Cava, Guidance (ICD-10-PCS; 2020-02-09)
DX: A41.9 Sepsis, unspecified organism (principal); G03.9 Meningitis, unspecified; E11.52 Type 2 diabetes mellitus with diabetic peripheral angiopathy with gangrene; F11.20 Opioid dependence, uncomplicated; G83.4 Cauda equina syndrome; L03.115 Cellulitis of right lower limb; E11.621 Type 2 diabetes mellitus with foot ulcer; E83.42 Hypomagnesemia; F17.210 Nicotine dependence, cigarettes, uncomplicated; G25.81 Restless legs syndrome; I10 Essential (primary) hypertension; L73.2 Hidradenitis suppurativa; F41.9 Anxiety disorder, unspecified; E28.2 Polycystic ovarian syndrome; M19.90 Unspecified osteoarthritis, unspecified site; L97.519 Non-pressure chronic ulcer of other part of right foot with unspecified severity; Z79.2 Long term (current) use of antibiotics; Z79.891 Long term (current) use of opiate analgesic; Z88.0 Allergy status to penicillin; Z88.6 Allergy status to analgesic agent; Z82.49 Family history of ischemic heart disease and other diseases of the circulatory system; Z83.3 Family history of diabetes mellitus; Z03.818 Encounter for observation for suspected exposure to other biological agents ruled out
CPT/HCPCS: 36415; 96374; 99285; J0572; J3490; 36573; 71045; 71046; 75630; 75710; 80048; 80053; 80061; 80069; 81025; 82550; 82962; 83036; 83735; 84100; 84702; 85025; 85520; 85651; 86140; 87040; 87086; 87635; 88305; 88311; 93005; 93922; 93926; 93970; 99156; 99157; G0378; J0690; J0878; J1100; J1170; J1335; J1644; J1650; J2175; J2185; J2250; J2405; J2704; J2720; J3010; J3480; Q9966; A9575; C1751; C1757; C1769; C1894; J0330; J1815; J1940; J2270; J2310; J3475; J7030; J7120

== ENCOUNTER 2020-03-13 12:30 | Observation (INO) | payer MEDICAID ==
[~2020-03-13] VITALS: Ht 167.6 cm; Wt 103.0 kg
[~2020-03-13 12:30] MED LIST changes: +ACET325T26 PO; +ASCO500T9 PO; +BUPR1FIL TD; +CHOL500045 PO; +CLOP75TA PO; +DICL-249 PEG; +ERTA1VIA4 IV; +GABA300C PO; +INSU100I13 SQ-INSULIN; +METF500T3 PO; +METH250T3 PO; +NICO-487 TD; +OXYC5TAB2 PO; +OXYC5TAB3 PO; +PREG200C PO; +SIMV20TA19 PO; +Senna/Docusate PO; +TIZA4CAP PO; +ZINC220C7 PO; +[UNRECOGNIZED DRUG - CODE] PO
[2020-03-13 12:55] VITALS: BP 137/84
[2020-03-13 13:00] VITALS: BP 137/84
[2020-03-13] MEDS ORDERED: CHLORHEXIDINE 15 ML UDC MM ONE (13:00)
[2020-03-13] MEDS ORDERED: LACTATED RINGERS 1,000 ML IV SCH ×2 (13:00→15:00)
[2020-03-13] MEDS ORDERED: DICL25TA PO (13:19)
[2020-03-13] MEDS ORDERED: OXYC10TA6 PO (13:19)
[2020-03-13] MEDS ORDERED: MIDAZOLAM 1 MG/ML, 2ML ONE (14:32)
[2020-03-13] MEDS ORDERED: FENTANYL PF 100 MCG/2ML ONE ×3 (14:32→15:34)
[2020-03-13] MEDS ORDERED: CHLORHEXIDINE 15 ML UDC MM STA (14:36)
[2020-03-13] MEDS ORDERED: OXYcodone 5 MG/5 ML ORAL.SOL UDC ONE (15:34)
[2020-03-13] MEDS: FENTANYL PF 100 MCG/2ML IV PRN ×2 (15:35→15:42)
[2020-03-13] MEDS ORDERED: KETOROLAC 30 MG/1 ML ONE (15:39)
[2020-03-13] MEDS ORDERED: ACETAMINOPHEN 650 MG/20.3 ML UDC ONE (15:39)
[2020-03-13] MEDS ORDERED: GABAPENTIN 300 MG CAPSULE ONE (15:40)
[2020-03-13] MEDS ORDERED: HYDROmorphone 1 MG/ML, 1ML INJ ONE (15:43)
[2020-03-13] MEDS: HYDROmorphone 1 MG/ML, 1ML INJ IVPush PRN ×2 (15:47→15:58)
[2020-03-13] MEDS ORDERED: LABETALOL 5MG/ML, 20ML ONE (15:55)
[2020-03-13] MEDS: LABETALOL 5MG/ML, 20ML IV PRN ×2 (15:55→16:30)
[2020-03-13] MEDS ORDERED: PROMETHAZINE 25 MG/ML, 1ML IVPush PRN (16:00)
[2020-03-13] MEDS ORDERED: MEPERIDINE/PF 25MG/0.5ML IVPush PRN (16:00)
[2020-03-13] MEDS ORDERED: hydrALAzine 20 MG/ML, 1ML IV PRN ×2 (16:00→19:00)
[2020-03-13] MEDS ORDERED: ACETAMINOPHEN 325 MG TABLET PO PRN (16:00)
[2020-03-13] MEDS ORDERED: GABAPENTIN 300 MG CAPSULE PO ONE (16:00)
[2020-03-13] MEDS ORDERED: KETOROLAC 30 MG/1 ML IVPush PRN (16:00)
[2020-03-13] MEDS ORDERED: HALOPERIDOL 5 MG/ML IV PRN (16:00)
[2020-03-13] MEDS ORDERED: OXYcodone 5 MG/5 ML ORAL.SOL UDC PO PRN (16:00)
[2020-03-13] MEDS ORDERED: DIPHENHYDRAMINE 50 MG/ML, 1ML IVPush PRN ×2 (16:00→19:00)
[2020-03-13] MEDS ORDERED: METOPROLOL 1 MG/ML, 5ML IV PRN (16:00)
[2020-03-13] MEDS ORDERED: LORazepam 2 MG/ML, 1ML IVPush PRN (16:00)
[2020-03-13] MEDS ORDERED: ONDANSETRON 2MG/ML, 2ML IVPush PRN (16:00)
[2020-03-13] MEDS ORDERED: HYDROcodone/APAP 7.5-325MG/15ML UDC PO PRN (16:00)
[2020-03-13] MEDS ORDERED: MEPERIDINE/PF 25MG/ML,1ML ONE (16:11)
[2020-03-13] MEDS ORDERED: ONDANSETRON 2MG/ML, 2ML ONE (16:42)
[2020-03-13] MEDS ORDERED: CEFAZOLIN 1,000 MG ONE (16:42)
[2020-03-13] MEDS ORDERED: PROPOFOL 10 MG/ML, 20ML ONE (16:42)
[2020-03-13] MEDS ORDERED: ONDANSETRON 2MG/ML, 2ML IV PRN ×2 (17:30→19:00)
[2020-03-13] MEDS ORDERED: OXYcodone IR 5MG TABLET PO PRN (17:30)
[2020-03-13] MEDS ORDERED: ONDANSETRON ODT 4 MG PO PRN (19:00)
[2020-03-13] MEDS ORDERED: HYDROmorphone 1 MG/ML, 1ML INJ IV PRN (19:00)
[2020-03-13] MEDS ORDERED: BISACODYL 10 MG SUPP PR PRN (19:30)
[2020-03-13] MEDS ORDERED: POLYETHYLENE GLYCOL 17 GM PACKET PO PRN (19:30)
[2020-03-13 19:54] VITALS: BP 155/82
[2020-03-13] MEDS: NS + 20MEQ KCL 1,000 ML IV SCH (20:58)
[2020-03-13] MEDS: PREGABALIN 200 MG CAPSULE PO SCH (20:59)
[2020-03-13] MEDS: TIZANIDINE 4MG TABLET PO SCH (20:59)
[2020-03-13] MEDS: INSULIN LISPRO 100 UNITS/ML, PEN SQ-INSULIN SCH (21:00)
[2020-03-13] MEDS ORDERED: OXYcodone IR 5MG TABLET PO SCH (21:00)
[2020-03-13] MEDS ORDERED: GABAPENTIN 300 MG CAPSULE PO SCH (21:00)
[2020-03-13] MEDS ORDERED: DICLOFENAC 50 MG TABLET.DR PO SCH (21:00)
[2020-03-13] MEDS: OXYcodone IR 5MG TABLET PO PRN (22:24)
[2020-03-13] MEDS: ACETAMINOPHEN 325 MG TABLET PO SCH (22:24)
[2020-03-13] MEDS: KETOROLAC 30 MG/1 ML IV SCH (22:25)
[2020-03-14 00:13] VITALS: BP 111/70
[2020-03-14] MEDS: CEFAZOLIN 2,000 MG in SODIUM CHLORIDE 0.9% 50 ML IV SCH ×2 (01:08→10:01)
[2020-03-14 04:08] VITALS: BP 114/65
[2020-03-14] MEDS: KETOROLAC 30 MG/1 ML IV SCH ×2 (05:45→14:00)
[2020-03-14] MEDS: ACETAMINOPHEN 325 MG TABLET PO SCH ×2 (05:45→14:00)
[2020-03-14] MEDS: OXYcodone IR 5MG TABLET PO PRN ×3 (05:49→14:00)
[2020-03-14] MEDS: INSULIN LISPRO 100 UNITS/ML, PEN SQ-INSULIN SCH ×3 (06:39→16:00)
[2020-03-14] MEDS: NS + 20MEQ KCL 1,000 ML IV SCH ×2 (06:41→15:00)
[2020-03-14 07:00] VITALS: BP 145/78
[2020-03-14] MEDS ORDERED: SENNA/DOCUSATE TABLET PO SCH (09:00)
[2020-03-14] MEDS: TIZANIDINE 4MG TABLET PO SCH (10:01)
[2020-03-14] MEDS: PREGABALIN 200 MG CAPSULE PO SCH ×2 (10:01→16:36)
[2020-03-14 12:47] VITALS: BP 163/75
[2020-03-14] MEDS ORDERED: CEFAZOLIN PMX 2GM/50ML 50 ML IVPB SCH (17:00)
== END 2020-03-14 22:30 | disposition home or self-care (01) ==
LOC: INTOOBSV 12:30 → ORIP 12:30 → 4NE 17:19
PROVIDERS: ADMIT Orthopaedic Surgery; ATTEND Orthopaedic Surgery
DX: M87.9 Osteonecrosis, unspecified (principal); Z20.828 Contact with and (suspected) exposure to other viral communicable diseases; E11.9 Type 2 diabetes mellitus without complications; E28.2 Polycystic ovarian syndrome; Z88.0 Allergy status to penicillin; Z89.511 Acquired absence of right leg below knee; Z87.891 Personal history of nicotine dependence; Z79.899 Other long term (current) drug therapy
CPT/HCPCS: 27880; 82962; 87635; 88307; 88311; 96361; 96365; 96366; 96375; 96376; 97163; G0378; J0690; J1170; J1885; J2175; J2250; J2405; J2704; J3010; J3480; J7120; Q0162